=== PATIENT | female | born 1990 | race Caucasian/White ===

== ENCOUNTER 2020-07-09 00:02 | Emergency (ER) | payer BC ==
[~2020-07-09] VITALS: Ht 160 cm; Wt 56.2 kg
[~2020-07-09 00:02] MED LIST: ESCI20TA PO; INSU100I4 SQ
--- NOTE | 2020-07-09 00:30 | NUR ---
MD Gale in room to do MSE.
--- NOTE | 2020-07-09 00:55 | NUR ---
Performed EKG on patient with AILIN as my motor equipment sergeant.
--- NOTE | 2020-07-09 00:55 | NUR ---
Lab notified there will be a delay in labs d/t senior quality technician check on the machines.
--- NOTE | 2020-07-09 00:57 | NUR ---
turfgrass technician in room to do X-rays.
[2020-07-09] MEDS ORDERED: MORPHINE SULFATE 2 MG/1 ML DISP.SYRIN IM ONE (01:00)
[2020-07-09] MEDS ORDERED: MORPHINE SULFATE 2 MG/1 ML DISP.SYRIN ONE (01:10)
[2020-07-09 01:15] LABS: *URINE HCG, QUAL NEGATIVE (NEGATIVE)
[2020-07-09 01:16] LABS: BASOPHILS # (AUTO) 0.1 K/uL (0.0-8.0); BASOPHILS % (AUTO) 0.5 % (0.0-2.0); EOSINOPHILS # (AUTO) 0.2 K/uL (0.0-0.7); EOSINOPHILS % (AUTO) 1.2 % (0.0-7.0); HEMATOCRIT 37.8 % (31.2-41.9); HEMOGLOBIN 12.5 g/dL (10.9-14.3); LYMPHOCYTES # (AUTO) 2.5 K/uL (20.0-40.0); LYMPHOCYTES % (AUTO) 18.2 % (20.5-51.5); MEAN CORPUSCULAR HEMOGLOBIN 28.8 uug (24.7-32.8); MEAN CORPUSCULAR HGB CONC 33 g/dL (32.3-35.6); MEAN CORPUSCULAR VOLUME 86.8 fL (75.5-95.3); MONOCYTES # (AUTO) 1.1 K/uL (2.0-10.0); MONOCYTES % (AUTO) 7.8 % (0.0-11.0); NEUTROPHILS # (AUTO) 10.1 K/uL (1.8-8.9); NEUTROPHILS % (AUTO) 72.3 % (38.5-71.5); PLATELET COUNT (AUTO) 315 K/uL (179-408); RED BLOOD CELL COUNT(AUTO) 4.35 MIL/uL (3.63-4.92)
[2020-07-09 01:23] LABS: CREATININE 0.9 mg/dL (0.6-1.3); POTASSIUM 3.4 mmol/L (3.5-5.1)
--- NOTE | 2020-07-09 01:30 | NUR ---
MD Gale orders to take a repeat troponin lab and EKG at 04:00.
[2020-07-09 01:39] LABS: BILIRUBIN,DIRECT 0.1 mg/dL (0.0-0.2); BILIRUBIN,TOTAL 0.3 mg/dL (0.2-1.0); TOTAL PROTEIN, SERUM 6.8 g/dL (6.4-8.2)
[2020-07-09] MEDS ORDERED: OXYCODONE/APAP 5-325 MG TABLET PO ONE (02:30)
[2020-07-09] MEDS ORDERED: OXYCODONE/APAP 5-325 MG TABLET ONE (02:35)
--- NOTE | 2020-07-09 03:00 | NUR ---
Patient is sleeping. Eyes closed. No acute distress noted.
--- NOTE | 2020-07-09 04:00 | NUR ---
Caleb Jain in room to draw blood for second troponin. Caleb Jain chaperoned me as I did the repeat EKG.
--- NOTE | 2020-07-09 04:10 | NUR ---
MD Gale made aware of second troponin draw and EKG performed.
[2020-07-09] MEDS ORDERED: ACET1TAB23 PO (05:05)
[2020-07-09 05:40] VITALS: BP 141/87
--- NOTE | 2020-07-09 05:40 | NUR ---
Patient discharged to home in stable condition. Written and verbal after care instructions given. Patient verbalizes understanding of instructions. Stressed follow up or return to ER for worsening s/s. Patient ambulates with steady gait, received copies of (EKG, labs, x-ray), V/S stable, left with all personal belongings.
== END 2020-07-09 05:40 | disposition home or self-care (01) ==
LOC: ER 00:06
DX: R07.9 Chest pain, unspecified (principal); E10.65 Type 1 diabetes mellitus with hyperglycemia; E87.6 Hypokalemia; E87.1 Hypo-osmolality and hyponatremia; Z87.11 Personal history of peptic ulcer disease
CPT/HCPCS: 36415; 71045; 80048; 80076; 83880; 84484 ×2; 84703; 85025; 85379; 93005 ×2; 96372; 99285; J2270; 70030-TC; A4663